=== PATIENT | female | born 1975 | race Two or more races ===

== ENCOUNTER 2016-12-19 10:04 | Emergency (ER) | payer OTHER ==
[~2016-12-19] VITALS: Ht 160 cm; Wt 64.2 kg
[2016-12-19 10:07] VITALS: BP 132/83
[2016-12-19] MEDS ORDERED: PROPARACAINE OPHTH 0.5%, 15ML ONE (10:27)
[2016-12-19] MEDS ORDERED: FLUORESCEIN OPHTHALMIC 1 MG STRIP ONE (10:27)
[2016-12-19] MEDS ORDERED: PROPARACAINE OPHTH 0.5%, 15ML EACHEYE ONE (10:30)
[2016-12-19] MEDS ORDERED: FLUORESCEIN OPHTHALMIC 1 MG STRIP EACHEYE ONE (10:30)
== END 2016-12-19 10:56 | disposition home or self-care (01) ==
LOC: ED 10:50
DX: H10.023 Other mucopurulent conjunctivitis, bilateral (principal)
CPT/HCPCS: 99283